=== PATIENT | female | born 1980 | race Caucasian/White ===

== ENCOUNTER 2018-06-18 05:59 | Inpatient (IN) | payer MEDICARE, OTHER ==
[2018-06-18] MEDS ORDERED: TERBUTALINE 1 MG/ML VIAL SQ PRN (06:13)
[2018-06-18] MEDS ORDERED: LIDOCAINE 1% INJ 10MG/ML (20 ML MDV) SQ PRN (06:13)
[2018-06-18] MEDS ORDERED: METHYLERGONOVINE 0.2 MG/ML 1 ML AMP IM PRN (06:13)
[2018-06-18] MEDS ORDERED: OXYTOCIN 10 UNIT/ML 1 ML VIAL IM PRN (06:13)
[2018-06-18] MEDS ORDERED: CARBOPROST TROMETHAMINE 250 MCG/ML 1 ML AMP IM PRN (06:13)
[2018-06-18] MEDS ORDERED: OXYTOCIN 20 UNITS/1000 ML NS 1,000 ML IV SCH (06:15)
[2018-06-18 07:05] VITALS: BMI 85.8
[2018-06-18] MEDS: LACTATED RINGERS 1,000 ML IV SCH ×2 (07:16→20:51)
[2018-06-18] MEDS ORDERED: BUTORPHANOL 1 MG/ML 1 ML VIAL IV PRN (07:17)
[2018-06-18 07:19] LABS: Basophils % (A) 0 %; Eosinophils # (A) 0.1 k/uL (0-0.7); Eosinophils % (A) 1 %; HGB 11.7 gm/dL (11.4-16.0); Lymphocytes # (A) 1.4 k/uL (1.0-4.8); Lymphocytes % (A) 20 %; MCH 31.9 pg (25.0-35.0); MCHC 34.3 g/dL (31.0-37.0); MCV 92.9 fL (80.0-100.0); Mean Platelet Volume 9.2; Monocytes # (A) 0.3 k/uL (0-1.0); Monocytes % (A) 4 %; Neutrophils # (A) 5.3 k/uL (1.3-7.7); Neutrophils % (A) 74 %; Platelet Count 112 k/uL (150-450); RBC 3.66 m/uL (3.80-5.40); RDW 14.1 % (11.5-15.5); WBC 7.2 k/uL (3.8-10.6)
--- NOTE | 2018-06-18 07:25 | P.HPOB ---
History of Present Illness H&P Date: 06/18/18 This is a 37-year-old white female 3 para 2002 EDC 06/14/2018 at 40-4/7 weeks' gestation. Patient presents today for induction with favorable multiparous cervix at post dates. She is having irregular uterine contractions. She denies fluid leakage or vaginal bleeding. Past medical history is significant for hyperemesis and mental impairment. Past surgical history is negative. Current medications Zofran as needed, [place] vitamins daily. ALLERGIES none known. Family history unknown, patient is adopted. Social history patient is a former smoker, she is not , she denies alcohol or drug use. history blood type is AB+, rubella status immune. Urine culture, hepatitis B surface antigen, HIV testing, group B strep cultures all negative. One-hour Glucola 117. On exam this is a pleasant white female, 5 foot 1 inch, 206 pounds, blood pressure 117/73. Gen. physical exam is within normal limits. Cervix is 4 cm dilated, 60-70% effaced, -2 station, vertex presentation. Artificial amniorrhexis reveals clear fluid. heart rate is consistent with reactive NST. Impression: 3-4/7 weeks intrauterine , here for induction. All signs reassuring. Plan: We'll proceed with oxytocin per protocol. Analgesic options have been reviewed. Close maternal and surveillance. Anticipate normal spontaneous vaginal delivery. Review of Systems Constitutional: Reports as per HPI Past Medical History Past Medical History: No Reported History Additional Past Medical History / Comment(s): cholecystitis History of Any Multi-Drug Resistant Organisms: None Reported Past Surgical History: No Surgical Hx Reported Past Anesthesia/Blood Transfusion Reactions: No Reported Reaction Past Psychological History: No Psychological Hx Reported Additional Psychological History / Comment(s): Pt resides with [facility] [place] and 2 children. She reads minimally and writes minimally. Smoking Status: Former smoker Past Alcohol Use History: None Reported Additional Past Alcohol Use History / Comment(s): Pt states she cannot recall when she started smoking but quit in 2011 Past Drug Use History: None Reported - Past Family History Father History Unknown: Yes Additional Family Medical History / Comment(s): Pt was adopted Medications and Allergies Home Medications Medication Instructions Recorded Confirmed Type Ondansetron Odt [Zofran ODT] 4 mg PO Q8HR PRN 11/04/17 06/18/18 History Potassium Chloride [Klor-Con 20] 20 meq PO TID 11/04/17 06/18/18 History Acetaminophen Tab [Tylenol] 650 mg PO Q6HR PRN tab 11/07/17 06/18/18 Rx Cefuroxime Axetil [Ceftin] 500 mg PO BID #6 tab 11/07/17 06/18/18 Rx Famotidine [Pepcid] 20 mg PO DAILY #5 tablet 11/07/17 06/18/18 Rx Rgm-Nrdj-Dwhes Acid 1 each PO DAILY@1200 cap 11/07/17 06/18/18 Rx [-U Capsule (formulary)] Allergies Allergy/AdvReac Type Severity Reaction Status Date / Time No Known Allergies Allergy Verified 06/18/18 06:07 Exam Vital Signs Temp Pulse Resp BP Pulse Ox 06/18/18 06:06 97.1 F L 100 16 117/73 99 Intake and Output 06/17/18 06/18/18 06/18/18 22:59 06:59 14:59 Other: Weight 93.44 kg See dictation under HPI. Assessment and Plan Plan: Close maternal and surveillance. Anticipate normal spontaneous vaginal delivery. Time with Patient: Less than 30
[2018-06-18] MEDS ORDERED: SIMETHICONE 80 MG CHEWABLE PO PRN (10:51)
[2018-06-18] MEDS ORDERED: diphenhydrAMINE 25 MG CAP PO PRN (10:51)
[2018-06-18] MEDS ORDERED: diphenhydrAMINE 50 MG CAP PO PRN (10:51)
[2018-06-18] MEDS ORDERED: HYDROcodone/APAP 5-325MG 1 EACH TAB PO PRN (10:51)
[2018-06-18] MEDS ORDERED: ZOLPIDEM 5 MG TAB PO PRN (10:51)
[2018-06-18] MEDS ORDERED: HYDROCORTISONE 2.5% RECTAL CREAM 30 GM TUBE RECTAL PRN (10:51)
[2018-06-18] MEDS ORDERED: WITCH HAZEL 1 EACH MED..PAD TOPICAL PRN (10:51)
[2018-06-18] MEDS ORDERED: ACETAMINOPHEN TAB 325 MG TAB PO PRN (10:51)
[2018-06-18] MEDS ORDERED: LANOLIN CREAM 5 GM TUBE TOPICAL PRN (10:51)
[2018-06-18] MEDS ORDERED: BENZOCAINE/MENTHOL SPRAY 1 GM/SPRAY AEROSOL TOPICAL PRN (10:51)
[2018-06-18] MEDS ORDERED: diphenhydrAMINE 50 MG/ML 1 ML VIAL IVP PRN ×2 (10:51)
[2018-06-18] MEDS ORDERED: diphenhydrAMINE ELIXIR 25 MG/10 ML CUP PO PRN (10:51)
--- NOTE | 2018-06-18 10:51 | P.PROBDLV ---
Vaginal Delivery Note - . Vaginal Delivery Note: This is a 37-year-old white female 3 para 2001 EDC 06/14/2018 at 40-4/7 weeks' gestation. Patient presented this morning for induction with favorable multiparous cervix, otherwise unremarkable. Rubella status immune, blood type AB+, please see dictated history and physical for details. Artificial amniorrhexis revealed clear fluid, patient was 4 cm and 60-70% effaced on admission. Sh requested and received Stadol 1 mg 1 dose. She declined the option for epidural. heart tones were reassuring throughout the first and second stages of labor. She became completely dilated at 1024 hrs. and began the second stage of labor at that time. Patient pushed extremely well in the dorsal lithotomy position. The perineal body was prepped and draped in usual sterile fashion. Infant's head delivered occiput anterior and restituted accordingly. There was a nuchal cord 1 that was reduced. The right or anterior shoulder was gently delivered from underneath the pubic symphysis at which time the oropharynx, nasopharynx, and external nares were bulb suctioned on the perineal body. Patient was officially delivered of a liveborn female at 1029 hrs. Umbilical cord was doubly clamped and ligated, she was handed to waiting nurses for evaluation where scores of 9 and 9 at one and 5 minutes respectively were given. Placenta delivered spontaneously, it was inspected and noted to be fully intact with trivascular cord, slightly calcified around the edges, it 1033 hours. The uterus was massaged. Inspection now of the cervix, vagina, perineum, periurethral, and perirectal areas revealed a small second-degree midline perineal laceration. This was injected with 1% lidocaine and repaired in the usual fashion using 3-0 Vicryl suture. Total estimated blood loss 300 mL's. Fundus is firm and in the midline, symmetric and 18 week size upon completion of delivery. weighs 3750 g or 8 lbs. 4 oz. The patient and her family are allowed to begin the bonding experience in the LDR.
[2018-06-18] MEDS: IBUPROFEN 600 MG TAB PO PRN ×2 (11:51→22:03)
[2018-06-18] MEDS: SENNOSIDES-DOCUSATE SODIUM 1 EACH TAB PO SCH (22:03)
--- NOTE | 2018-06-19 07:09 | P.DS ---
Providers Date of admission: 06/18/18 05:59 Expected date of discharge: 06/19/18 Attending physician: Debbie Rodriguez Primary care physician: Stated None Hospital Course: This is a 37-year-old white female 3 para 2002 EDC 06/14/2018 at 40-4/7 weeks' gestation. Patient presented for induction with favorable multiparous cervix, postdates. Fetus is been active throughout the . Rupee strep cultures negative, blood type AB+, rubella status immune. Please see dictated history and physical for details. Artificial amniorrhexis revealed clear fluid. Oxytocin was started and titrated per hospital protocol. She requested and received an epidural. She went on to deliver vaginally a liveborn female with scores of 9 and 9 at one and 5 minutes respectively. There was a small second-degree perineal laceration easily repaired and an estimated blood loss of 300 mL's. Please see my dictated delivery note for details. Baby weighed 8 lbs. 4 oz. or 3750 g. This morning the patient is doing well. She is voiding, ambulating and passing flatus without difficulty. Vital signs are stable and she is afebrile. Fundus is firm and in the midline, symmetric and 18 week size. Extremities are negative for edema. [place] is doing well. Patient is being discharged home today in very good condition. She will follow- up with me in the office in 6 weeks. I have reminded her no intercourse, tampons or douching. She will use [id number] Advil or Aleve as needed for pain. She will call with any fevers shakes or chills, foul smelling or copious lochia, with the passage of large blood clots, with any pain not alleviated by [id number] products or indeed with any concerns. Continue taking vitamin daily. will follow-up with rough rice tender as recommended. is planning vasectomy. Patient Condition at Discharge: Good Plan - Discharge Summary Discharge Rx Participant: No New Discharge Prescriptions: No Action Potassium Chloride [Klor-Con 20] 20 meq PO TID Ondansetron Odt [Zofran ODT] 4 mg PO Q8HR PRN PRN Reason: Nausea Acetaminophen Tab [Tylenol] 650 mg PO Q6HR PRN tab PRN Reason: Mild Pain Or Fever > 100.5 Cefuroxime Axetil [Ceftin] 500 mg PO BID #6 tab Ysl-Soiq-Vjlye Acid [-U Capsule (formulary)] 1 each PO DAILY @1200 cap Famotidine [Pepcid] 20 mg PO DAILY #5 tablet Discharge Medication List Ondansetron Odt [Zofran ODT] 4 mg PO Q8HR PRN 11/04/17 [History] Potassium Chloride [Klor-Con 20] 20 meq PO TID 11/04/17 [History] Acetaminophen Tab [Tylenol] 650 mg PO Q6HR PRN tab 11/07/17 [Rx] Cefuroxime Axetil [Ceftin] 500 mg PO BID #6 tab 11/07/17 [Rx] Famotidine [Pepcid] 20 mg PO DAILY #5 tablet 11/07/17 [Rx] Tnw-Lwsx-Kjrwi Acid [-U Capsule (formulary)] 1 each PO DAILY@ 1200 cap 11/07/17 [Rx] Follow up Appointment(s)/Referral(s): Debbie Rodriguez MD [STAFF PHYSICIAN] - 6 Weeks Discharge Disposition: HOME SELF-CARE
[2018-06-19] MEDS: SENNOSIDES-DOCUSATE SODIUM 1 EACH TAB PO SCH (07:52)
[2018-06-19] MEDS: IBUPROFEN 600 MG TAB PO PRN (07:53)
[2018-06-19 08:44] VITALS: BP 128/86; PULSE 74; RESP 20; TEMP 98
== END 2018-06-19 13:40 | disposition home or self-care (01) | DRG 775 ==
LOC: 4FBP 05:59
PROVIDERS: ADMIT Obstetrics & Gynecology; ATTEND Obstetrics & Gynecology
PROC: 10E0XZZ Delivery of Products of Conception, External Approach (ICD-10-PCS; principal; 2018-06-18)
PROC: 0KQM0ZZ Repair Perineum Muscle, Open Approach (ICD-10-PCS; 2018-06-18)
PROC: 3E033VJ Introduction of Other Hormone into Peripheral Vein, Percutaneous Approach (ICD-10-PCS; 2018-06-18)
PROC: 10907ZC Drainage of Amniotic Fluid, Therapeutic from Products of Conception, Via Natural or Artificial Opening (ICD-10-PCS; 2018-06-18)
DX: O48.0 Post-term pregnancy (principal); Z37.0 Single live birth; O69.81X0 Labor and delivery complicated by cord around neck, without compression, not applicable or unspecified; O70.1 Second degree perineal laceration during delivery; Z3A.40 40 weeks gestation of pregnancy; Z87.891 Personal history of nicotine dependence; Z79.899 Other long term (current) drug therapy; Z87.19 Personal history of other diseases of the digestive system
CPT/HCPCS: 85025

== ENCOUNTER 2022-02-23 06:05 | Inpatient (IN) | payer MEDICARE, OTHER ==
[2022-02-23] MEDS ORDERED: OXYTOCIN 10 UNIT/ML 1 ML VIAL IM PRN (06:33)
[2022-02-23] MEDS ORDERED: TERBUTALINE 1 MG/ML VIAL SQ PRN (06:33)
[2022-02-23] MEDS ORDERED: LIDOCAINE 0.5% (PF) 5 MG/ML (50 ML SDV) SQ PRN (06:33)
[2022-02-23] MEDS ORDERED: CARBOPROST TROMETHAMINE 250 MCG/ML 1 ML AMP IM PRN (06:33)
[2022-02-23] MEDS ORDERED: METHYLERGONOVINE 0.2 MG/ML 1 ML AMP IM PRN (06:33)
[2022-02-23] MEDS ORDERED: OXYTOCIN 30 UNITS/500 ML NS 30 UNIT in SALINE 1 500ML.BAG IV SCH (06:45)
[2022-02-23] MEDS: LACTATED RINGERS 1,000 ML IV SCH ×2 (06:59→20:48)
[2022-02-23 07:20] LABS: Basophils % (A) 0 %; Eosinophils # (A) 0.1 k/uL (0-0.7); Eosinophils % (A) 1 %; HCT 32.5 % (34.0-46.0); HGB 10.7 gm/dL (11.4-16.0); Lymphocytes # (A) 1.3 k/uL (1.0-4.8); Lymphocytes % (A) 21 %; MCHC 32.8 g/dL (31.0-37.0); MCV 91.5 fL (80.0-100.0); Monocytes # (A) 0.3 k/uL (0-1.0); Monocytes % (A) 5 %; Neutrophils # (A) 4.5 k/uL (1.3-7.7); Neutrophils % (A) 72 %; Platelet Count 109 k/uL (150-450); RBC 3.55 m/uL (3.80-5.40); WBC 6.2 k/uL (3.8-10.6)
[2022-02-23] MEDS ORDERED: BUTORPHANOL 1 MG/ML 1 ML VIAL IV PRN (08:14)
--- NOTE | 2022-02-23 08:14 | P.HPOB ---
History of Present Illness H&P Date: 02/23/22 Chief Complaint: Here for induction of labor This is a 41 -year-old 4 para 3003 EDC 02/23/2022 at 40 weeks gestation. Patient presents today for induction of labor with favorable multiparous cervix. Fetus is been active throughout the . Past medical history is significant for mental impairment. Past surgical history is negative. Current medications vitamins daily, baby aspirin daily. ALLERGIES none known. Family history is unknown, patient is adopted. Obstetric history normal spontaneous vaginal deliveries 3, all unremarkable. Social history patient is a former tobacco smoker, she is , she denies alcohol or drug use. history blood type is AB+, rubella status immune. VDRL testing, urine culture, hepatitis B surface antigen, HIV testing, gonorrhea and chlamydia cultures, rupee strep cultures all negative. One-hour Glucola 85. On exam patient is 5 foot 1 inch, 175 pounds, blood pressure 133/84. General physical exam is within normal limits. Cervix is 4 cm dilated, 60-70% effaced, -2 station, vertex presentation. Artificial amniorrhexis reveals clear fluid. heart rate is consistent with reactive NST. Uterine contractions are occurring approximately every 2-3 minutes apart of mild to moderate intensity. Impression: 40 week intrauterine , advanced maternal age, mental impairment, favorable cervix, here for induction of labor. All signs reassuring. Plan: Close maternal and surveillance, oxytocin per hospital protocol. Anticipating normal spontaneous vaginal delivery. Analgesic options reviewed. Review of Systems Constitutional: Reports as per HPI Past Medical History Past Medical History: No Reported History Additional Past Medical History / Comment(s): cholecystitis History of Any Multi-Drug Resistant Organisms: None Reported Past Surgical History: No Surgical Hx Reported Past Anesthesia/Blood Transfusion Reactions: No Reported Reaction Past Psychological History: No Psychological Hx Reported Additional Psychological History / Comment(s): Pt resides with [facility] and 2 children. She reads minimally and writes minimally. Smoking Status: Former smoker Past Alcohol Use History: None Reported Additional Past Alcohol Use History / Comment(s): Pt states she cannot recall when she started smoking but quit in 2011 Past Drug Use History: None Reported - Past Family History Father History Unknown: Yes Additional Family Medical History / Comment(s): Pt was adopted Medications and Allergies Home Medications Medication Instructions Recorded Confirmed Type Ondansetron Odt [Zofran ODT] 4 mg PO Q8HR PRN 11/04/17 02/23/22 History Potassium Chloride [Klor-Con 20] 20 meq PO TID 11/04/17 02/23/22 History Acetaminophen Tab [Tylenol] 650 mg PO Q6HR PRN tab 11/07/17 06/18/18 Rx Cefuroxime Axetil [Ceftin] 500 mg PO BID #6 tab 11/07/17 06/18/18 Rx Famotidine [Pepcid] 20 mg PO DAILY #5 tablet 11/07/17 02/23/22 Rx Ucb-Nnfv-Byxfq Acid 1 each PO DAILY@1200 cap 11/07/17 02/23/22 Rx [-U Capsule (formulary)] Allergies Allergy/AdvReac Type Severity Reaction Status Date / Time No Known Allergies Allergy Verified 06/18/18 06:07 Exam Vital Signs Temp Pulse Resp BP Pulse Ox 02/23/22 06:33 98.2 F 71 16 143/94 100 Intake and Output 02/22/22 02/23/22 02/23/22 22:59 06:59 14:59 Other: Weight 79.379 kg See dictation under HPI please Results Result Diagrams: 02/23/22 06:30 Abnormal Lab Results - Last 24 Hours (Table) 02/23/22 Range/Units 06:30 RBC 3.55 L (3.80-5.40) m/uL Hgb 10.7 L (11.4-16.0) gm/dL Hct 32.5 L (34.0-46.0) % Plt Count 109 L (150-450) k/uL Assessment and Plan Assessment: 40 week intrauterine , advanced maternal age, mental impairment. All obstetrical signs reassuring. Here for induction of labor Plan: Continue close maternal and surveillance. Oxytocin per protocol. Anticipate normal spontaneous vaginal delivery.
[2022-02-23] MEDS ORDERED: LANOLIN CREAM 5 GM TUBE TOPICAL PRN (10:27)
[2022-02-23] MEDS ORDERED: HYDROCORTISONE 2.5% RECTAL CREAM 30 GM TUBE RECTAL PRN (10:27)
[2022-02-23] MEDS ORDERED: BENZOCAINE/MENTHOL SPRAY 1 GM/SPRAY AEROSOL TOPICAL PRN (10:27)
[2022-02-23] MEDS ORDERED: diphenhydrAMINE 25 MG CAP PO PRN (10:27)
[2022-02-23] MEDS ORDERED: diphenhydrAMINE 50 MG CAP PO PRN (10:27)
[2022-02-23] MEDS ORDERED: ZOLPIDEM 5 MG TAB PO PRN (10:27)
[2022-02-23] MEDS ORDERED: diphenhydrAMINE 50 MG/ML 1 ML VIAL IVP PRN ×2 (10:27)
[2022-02-23] MEDS ORDERED: SIMETHICONE 80 MG CHEWABLE PO PRN (10:27)
--- NOTE | 2022-02-23 10:27 | P.PROBDLV ---
Vaginal Delivery Note - . Vaginal Delivery Note: This is a 41-year-old female 4 para 3003 EDC 02/23/2022 at 40 weeks gestation who presented for induction with favorable multiparous cervix. Fetus is been active throughout the . Blood type AB+, rubella status immune, group B strep cultures negative. Please see dictated history and physical for details. Artificial amniorrhexis revealed abundant clear fluid. Oxytocin was started and titrated per hospital protocol. She progressed well through the first stage of labor with a single dose of Stadol. She became completely dilated at 1003 hrs. and began the second stage of labor at that time. Perineal body was prepped and draped in usual sterile fashion. With excellent maternal expulsive efforts 's head delivered occiput anterior and she restituted accordingly. The right or anterior shoulder was gently delivered from underneath the pubic symphysis at which time the oropharynx, nasopharynx, and external nares were all bulb suctioned. Patient was officially delivered of a liveborn female infant at 1012 hrs. Umbilical cord was doubly clamped and ligated, she was handed to waiting pediatricians for evaluation where score of 9 and 9 at one and 5 minutes respectively were given. Placenta delivered spontaneously, it was inspected and noted to be intact with trivascular cord at 1015 hrs. Careful inspection of the cervix, vagina, perineum, periurethral, and perirectal areas revealed a small midline first-degree laceration easily repaired in the usual fashion using 3-0 repeat, with excellent reapproximation. Total estimated blood loss 200 mL's. Fundus is firm and in the midline, symmetric and 18 week size upon completion of delivery. All sponge needle and enhancement counts are correct. Patient is allowed to begin the bonding experience in the LDR. Infant weighs 3290 g or 7 lbs. 4 oz.
[2022-02-23] MEDS: IBUPROFEN 600 MG TAB PO SCH ×3 (11:29→23:41)
[2022-02-23 17:28] VITALS: RESP 16
[2022-02-23] MEDS: ACETAMINOPHEN TAB 325 MG TAB PO PRN (19:47)
[2022-02-23] MEDS: SENNOSIDES-DOCUSATE SODIUM 1 EACH TAB PO SCH (19:47)
[2022-02-24] MEDS: ACETAMINOPHEN TAB 325 MG TAB PO PRN (02:32)
[2022-02-24] MEDS: IBUPROFEN 600 MG TAB PO SCH ×2 (06:02→10:06)
--- NOTE | 2022-02-24 08:21 | P.DS ---
Providers Date of admission: 02/23/22 06:05 Expected date of discharge: 02/24/22 Attending physician: Debbie Rodriguez Primary care physician: Parisa Roberson [facility] Course: This is a 41-year-old female 4 para 3003 EDC 02/23/2022 at 40 weeks gestation who presented for induction with favorable multiparous cervix. Fetus is been active throughout the . Baby has had weekly nonstress testing due to maternal age, all reassuring. Please see dictated history and physical for details. Artificial amniorrhexis revealed abundant clear fluid. Patient went on to deliver vaginally a liveborn female with scores of 9 and 9 at one and 5 minutes respectively. Infant weighed 7 lbs. 4 oz. or 3290 g. A small first-degree perineal laceration was easily repaired. Total estimated blood loss at delivery 200 mL's. Please see dictated delivery note for details. Patient has done well in the period. 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 This morning she is said to be doing well, surgery is planned. Patient is anxious for discharge home. She is being discharged home in very good condition with instructions to follow-up with me in the office in 6 weeks. I have reminded her no intercourse, tampons or douching. She will use [id number] Advil or Aleve, or Motrin as needed for pain. She will call with any fevers shakes or chills, foul smelling or copious lochia, with the passage of large blood clots, with any pain not alleviated by gjaq-mdl-[id number] products, or indeed with any concerns. We have discussed contraceptive options and we will discuss this further in the office upon 6 week visit. Assessment: Doing well day #1 Patient Condition at Discharge: Good Plan - Discharge Summary Discharge Rx Participant: No New Discharge Prescriptions: No Action Potassium Chloride [Klor-Con 20] 20 meq PO TID Ondansetron Odt [Zofran ODT] 4 mg PO Q8HR PRN PRN Reason: Nausea Acetaminophen Tab [Tylenol] 650 mg PO Q6HR PRN tab PRN Reason: Mild Pain Or Fever > 100.5 Cefuroxime Axetil [Ceftin] 500 mg PO BID #6 tab Kzo-Dmgy-Ncaef Acid [-U Capsule (formulary)] 1 each PO DAILY@1200 cap Famotidine [Pepcid] 20 mg PO DAILY #5 tablet Discharge Medication List Ondansetron Odt [Zofran ODT] 4 mg PO Q8HR PRN 11/04/17 [History] Potassium Chloride [Klor-Con 20] 20 meq PO TID 11/04/17 [History] Acetaminophen Tab [Tylenol] 650 mg PO Q6HR PRN tab 11/07/17 [Rx] Cefuroxime Axetil [Ceftin] 500 mg PO BID #6 tab 11/07/17 [Rx] Famotidine [Pepcid] 20 mg PO DAILY #5 tablet 11/07/17 [Rx] Lxv-Tayu-Xvzea Acid [-U Capsule (formulary)] 1 each PO DAILY@1200 cap 11/07/17 [Rx] Follow up Appointment(s)/Referral(s): Debbie Rodriguez MD [STAFF PHYSICIAN] - 6 Weeks Discharge Disposition: HOME SELF-CARE
[2022-02-24] MEDS: SENNOSIDES-DOCUSATE SODIUM 1 EACH TAB PO SCH (10:06)
[2022-02-24 11:50] VITALS: BP 121/71; PULSE 71; TEMP 97.8
== END 2022-02-24 10:25 | disposition home or self-care (01) | DRG 807 ==
LOC: 4FBP 06:05
PROVIDERS: ADMIT Obstetrics & Gynecology; ATTEND Obstetrics & Gynecology
PROC: 0HQ9XZZ Repair Perineum Skin, External Approach (ICD-10-PCS; principal; 2022-02-23)
PROC: 4A0HXCZ Measurement of Products of Conception, Cardiac Rate, External Approach (ICD-10-PCS; principal; 2022-02-23)
PROC: 10907ZC Drainage of Amniotic Fluid, Therapeutic from Products of Conception, Via Natural or Artificial Opening (ICD-10-PCS; principal; 2022-02-23)
PROC: 10E0XZZ Delivery of Products of Conception, External Approach (ICD-10-PCS; principal; 2022-02-23)
PROC: 3E033VJ Introduction of Other Hormone into Peripheral Vein, Percutaneous Approach (ICD-10-PCS; principal; 2022-02-23)
DX: O70.0 First degree perineal laceration during delivery (principal); Z37.0 Single live birth; Z3A.40 40 weeks gestation of pregnancy; Z79.82 Long term (current) use of aspirin; Z87.891 Personal history of nicotine dependence
CPT/HCPCS: 85025; 86850; 86900; 86901